=== PATIENT | female | born 1965 | race African-American/Black ===

== ENCOUNTER 2016-12-04 13:06 | Emergency (ER) | payer MEDICAID ==
[~2016-12-04] VITALS: Ht 167.6 cm; Wt 107.0 kg
[2016-12-04 16:21] VITALS: BP 132/82
[2016-12-04] MEDS ORDERED: ACETAMINOPHEN 325MG TABLET PO ONE (16:30)
== END 2016-12-04 19:10 | disposition home or self-care (01) ==
LOC: ER 16:10
DX: M25.522 Pain in left elbow (principal); E05.90 Thyrotoxicosis, unspecified without thyrotoxic crisis or storm; Z88.0 Allergy status to penicillin; W19.XXXA Unspecified fall, initial encounter; Y93.89 Activity, other specified; Y92.89 Other specified places as the place of occurrence of the external cause; Y99.8 Other external cause status
CPT/HCPCS: 29105; 73080; 99284; Z7610; A4565

== ENCOUNTER 2016-12-06 21:12 | Emergency (ER) | payer MEDICAID ==
[~2016-12-06] VITALS: Ht 167.6 cm; Wt 105.0 kg
[2016-12-07] MEDS ORDERED: TRAMADOL 50MG TABLET PO ONE
[2016-12-07] MEDS ORDERED: KETOROLAC 60MG/2ML VIAL IM ONE
[2016-12-07 00:37] VITALS: BP 138/75
== END 2016-12-07 01:15 | disposition home or self-care (01) ==
LOC: ER 21:12
DX: M79.672 Pain in left foot (principal); M79.671 Pain in right foot; E05.90 Thyrotoxicosis, unspecified without thyrotoxic crisis or storm; I51.7 Cardiomegaly; Z98.890 Other specified postprocedural states; Z88.0 Allergy status to penicillin
CPT/HCPCS: 96372; 99283; J1885

== ENCOUNTER 2017-01-30 17:17 | Emergency (ER) | payer MEDICAID ==
[~2017-01-30] VITALS: Ht 167.6 cm; Wt 104.0 kg
[2017-01-31] MEDS ORDERED: IBUPROFEN 400MG TABLET PO ONE (04:00)
[2017-01-31 06:25] VITALS: BP 136/71
== END 2017-01-31 06:25 | disposition home or self-care (01) ==
LOC: ER 17:35
DX: S53.402A Unspecified sprain of left elbow, initial encounter (principal); S43.402A Unspecified sprain of left shoulder joint, initial encounter; E05.90 Thyrotoxicosis, unspecified without thyrotoxic crisis or storm; Z88.0 Allergy status to penicillin; X58.XXXA Exposure to other specified factors, initial encounter; Y93.89 Activity, other specified; Y92.89 Other specified places as the place of occurrence of the external cause; Y99.8 Other external cause status
CPT/HCPCS: 73030; 73080; 99284; Z7610

== ENCOUNTER 2017-03-18 19:19 | Emergency (ER) | payer MEDICAID ==
[~2017-03-18] VITALS: Ht 167.6 cm; Wt 103.0 kg
[2017-03-18 19:27] VITALS: BP 139/75
[2017-03-18] MEDS ORDERED: ONDANSETRON 4MG ODT PO ONE (21:00)
[2017-03-18] MEDS ORDERED: TRAMADOL 50MG TABLET PO ONE (21:00)
== END 2017-03-18 22:53 | disposition home or self-care (01) ==
LOC: ER 19:53
DX: M25.512 Pain in left shoulder (principal); R11.2 Nausea with vomiting, unspecified; E05.90 Thyrotoxicosis, unspecified without thyrotoxic crisis or storm; Z88.0 Allergy status to penicillin; Z98.890 Other specified postprocedural states
CPT/HCPCS: 73030; 81025; 99284; Q0162; A4565

== ENCOUNTER 2018-03-11 14:43 | Emergency (ER) | payer MEDICAID ==
[~2018-03-11] VITALS: Ht 167.6 cm; Wt 105.0 kg
[2018-03-11] MEDS ORDERED: FAMOTIDINE 20MG TABLET PO ONE (16:00)
[2018-03-11] MEDS ORDERED: PREDNISONE 20MG TABLET PO ONE (16:00)
[2018-03-11 16:14] VITALS: BP 149/81
== END 2018-03-11 16:14 | disposition home or self-care (01) ==
LOC: ER 15:50
DX: R21 Rash and other nonspecific skin eruption (principal); E05.90 Thyrotoxicosis, unspecified without thyrotoxic crisis or storm; Z88.0 Allergy status to penicillin; Z98.890 Other specified postprocedural states
CPT/HCPCS: 99283; J7512

== ENCOUNTER 2018-04-09 15:37 | Emergency (ER) | payer MEDICAID ==
[~2018-04-09] VITALS: Ht 167.6 cm; Wt 104.0 kg
[2018-04-09] MEDS ORDERED: IBUPROFEN 800MG TABLET PO ONE (20:30)
[2018-04-09] MEDS ORDERED: HYDROCODONE/ACETAMINOPHEN 5/325MG TABLET PO ONE (20:30)
[2018-04-09 22:46] VITALS: BP 114/65
== END 2018-04-09 22:47 | disposition home or self-care (01) ==
LOC: ER 15:37
DX: M79.671 Pain in right foot (principal); L84 Corns and callosities; E03.9 Hypothyroidism, unspecified; F17.200 Nicotine dependence, unspecified, uncomplicated; Z98.890 Other specified postprocedural states; Z88.0 Allergy status to penicillin
CPT/HCPCS: 73630; 99283

== ENCOUNTER 2020-01-04 15:28 | Emergency (ER) | payer MEDICAID ==
[~2020-01-04] VITALS: Ht 167.6 cm; Wt 110.0 kg
[2020-01-04] MEDS ORDERED: IBUPROFEN 600MG TABLET PO ONE (15:45)
[2020-01-04 17:05] VITALS: BP 141/86
== END 2020-01-04 17:11 | disposition home or self-care (01) ==
LOC: ER 15:41
DX: M23.304 Other meniscus derangements, unspecified medial meniscus, left knee (principal); E03.9 Hypothyroidism, unspecified; Z98.890 Other specified postprocedural states; Z88.0 Allergy status to penicillin; X50.1XXA Overexertion from prolonged static or awkward postures, initial encounter; Y93.89 Activity, other specified; Y92.018 Other place in single-family (private) house as the place of occurrence of the external cause
CPT/HCPCS: 73562; 99283

== ENCOUNTER 2020-03-29 11:15 | Emergency (ER) | payer MEDICAID ==
[~2020-03-29] VITALS: Ht 167.6 cm; Wt 105.0 kg
[2020-03-29] MEDS ORDERED: ACETAMINOPHEN 325MG TABLET PO ONE (11:30)
[2020-03-29 12:31] VITALS: BP 131/75
== END 2020-03-29 12:32 | disposition home or self-care (01) ==
LOC: ER 11:24
DX: S80.02XA Contusion of left knee, initial encounter (principal); E03.9 Hypothyroidism, unspecified; Z98.890 Other specified postprocedural states; Z88.0 Allergy status to penicillin; W01.0XXA Fall on same level from slipping, tripping and stumbling without subsequent striking against object, initial encounter; Y93.89 Activity, other specified; Y92.018 Other place in single-family (private) house as the place of occurrence of the external cause
CPT/HCPCS: 73564; 99283

== ENCOUNTER 2022-04-14 11:45 | Emergency (ER) | payer MEDICAID ==
[~2022-04-14] VITALS: Ht 167.6 cm; Wt 112.0 kg
[2022-04-14 11:52] VITALS: BP 165/83
[2022-04-14] MEDS ORDERED: LIDOCAINE HCL/EPINEPHRINE 1%-EPI 1:100,000 20 ML VIAL INFIL ONE (15:30)
[2022-04-14] MEDS ORDERED: BACITRACIN ZINC OINT UDPKT TOP ONE (15:30)
[2022-04-14] MEDS ORDERED: LIDOCAINE HCL/PF 1% 10 MG/ML 5ML VIAL INFIL ONE (16:30)
[2022-04-14] MEDS ORDERED: LIDOCAINE HCL 1% 10 MG/ML 10ML VIAL IJ NR (16:45)
[2022-04-14] MEDS ORDERED: SULF1TAB48 MT (16:47)
[2022-04-14] MEDS ORDERED: CEPH500C2 MT (16:47)
== END 2022-04-14 17:07 | disposition home or self-care (01) ==
LOC: ER 11:45
DX: L02.415 Cutaneous abscess of right lower limb (principal); E03.9 Hypothyroidism, unspecified; Z98.890 Other specified postprocedural states; Z88.0 Allergy status to penicillin
CPT/HCPCS: 10060; 99282; J3490

== ENCOUNTER 2023-03-10 10:50 | Emergency (ER) | payer MEDICAID, OTHER ==
[~2023-03-10] VITALS: Ht 167.6 cm; Wt 110.0 kg
[~2023-03-10 10:50] MED LIST: CEPH500C2 MT; SULF1TAB48 MT
[2023-03-10 11:18] VITALS: O2SAT 99
[2023-03-10] MEDS ORDERED: IBUPROFEN 600MG TABLET PO ONE (13:15)
[2023-03-10 15:30] VITALS: BP 146/84; PULSE 78; RESP 18; TEMP 98.2
== END 2023-03-10 15:30 | disposition home or self-care (01) ==
LOC: ER 12:11
DX: M79.671 Pain in right foot (principal); Z88.0 Allergy status to penicillin; Z98.890 Other specified postprocedural states; Z86.39 Personal history of other endocrine, nutritional and metabolic disease
CPT/HCPCS: 73630; 99283

== ENCOUNTER 2024-07-25 12:48 | Emergency (ER) | payer OTHER ==
[~2024-07-25] VITALS: Ht 162.6 cm; Wt 110.0 kg
[2024-07-25 12:50] VITALS: O2SAT 99
[2024-07-25 13:20] VITALS: BP 115/70; PULSE 80; RESP 14; TEMP 36.7; O2SAT 97
== END 2024-07-25 15:07 | disposition home or self-care (01) ==
LOC: ER 12:48
DX: D17.1 Benign lipomatous neoplasm of skin and subcutaneous tissue of trunk (principal); Z88.0 Allergy status to penicillin
CPT/HCPCS: 99281